=== PATIENT | male | born 2000 | race Caucasian/White ===

== ENCOUNTER 2021-12-31 18:21 | Emergency (ER) | payer MEDICAID, SELFPAY ==
[2021-12-31 18:32] VITALS: BP 108/78; PULSE 88; RESP 17; TEMP 36.4; O2SAT 98
--- NOTE | 2021-12-31 19:45 | DI.CT_ITS ---
Exam(s) CT HEAD WO EXAM: CT HEAD WO CLINICAL HISTORY: head and facial tightness, r/o acute process. TECHNIQUE: Imaging Protocol: Axial computed tomography images with coronal and sagittal reformatted images were created and reviewed COMPARISON: No exams were available for comparison FINDINGS: Ventricles and Extra axial spaces: Normal in size and morphology for the patient's age. Hemorrhage: None. Cerebral parenchyma: Normal. Midline shift: None. Brainstem/Cerebellum: Normal. Calvarium: Normal. Visualized Paranasal sinuses/Mastoids: Mucous retention right maxillary sinus. Soft Tissues: Unremarkable. IMPRESSION: No acute intracranial process. RADIATION DOSE DELIVERED: 1,336.02mGy.cm Total DLP DATA REPOSITORY: All CT scans at this facility are submitted to the National Radiology Data Registry (NRDR) Dose Index Registry (DIR) with the [employer] ([employer]). RADIATION OPTIMIZATION: All CT scans at this facility use at least one of these dose optimization te chniques: automated exposure control; mA and/or kV adjustment per patient size (includes targeted exa ms where dose is matched to clinical indication); or iterative reconstruction.
--- NOTE | 2021-12-31 19:55 | ED.GENADUL_ITS ---
Discharge Plan Disposition Patient Disposition: HOME Condition: Stable Discharge Details Clinical Impression: Tightness sensation Primary Care Provider: Iker Martinez ED Provider: Masoud Telles Home Meds and New Rx's Prescriptions: No Action No Known Home Meds Discharge Instructions Instructions: Temporomandibular Disorder (ED) Additional Instructions: your head cat scan did not show concerning findings and your lab values were unremarkable. this could be TMJ disorder, this can be further evaluated with your primary care provider if you feel more ill, have severe worsening pain or fevers return to the emergency department Medical Decision Making <Rashmi Milan DO - Last Filed: 12/31/21 20:03> 21-year-old male with no significant past medical history presents with a complaint of 4 months of left locke tightness which resolved 3 days ago now with a sensation of tightness extending from the top of the right side of his head and face. Vitals within normal limits. Patient has no focal deficits on exam. Normal sensation on face which is equal and symmetric. There is no evidence of rash or facial droop. Discussed with patient at length that his presentation does not appear consistent with CVA or Little's palsy. History and presentation does not appear consistent with trigeminal neuralgia. Discussed the possibility of tension headache or migraine. Offered to place an IV and check screening labs and CT head and patient is agreeable. We will give a dose of IV Tylenol and fluids. Case endorsed to Dr. Telles to follow-up on labs and imaging and final disposition. <Masoud Telles MD - Last Filed: 12/31/21 21:55> 21-year-old male with no significant past medical history presents with a complaint of 4 months of left locke tightness which resolved 3 days ago now with a sensation of tightness extending from the top of the right side of his head and face. Vitals within normal limits. Patient has no focal deficits on exam. Normal sensation on face which is equal and symmetric. There is no evidence of rash or facial droop. Discussed with patient at length that his presentation does not appear consistent with CVA or Little's palsy. History and presentation does not appear consistent with trigeminal neuralgia. Discussed the possibility of tension headache or migraine. Offered to place an IV and check screening labs and CT head and patient is agreeable. We will give a dose of IV Tylenol and fluids. Case endorsed to Dr. Telles to follow-up on labs and imaging and final disposition. labs and imaging unremarkable. He remains stable and states feels better after oral tylenol. He describes to me a tightness sensation in the right scalp and jaw that comes and goes, no vision changes or speech changes or weakness. Discussed with him that this could be tmj or other non life threatening disorder but should still f/u with his pcp within 1-2 weeks and return precautions given Imaging Data Radiologic Study: Attestation: I personally reviewed and interpreted this imaging study as follows: Imaging: CT Scan Radiologist's impression: no acute findings Lab Data Lab results reviewed: Yes I reviewed the patient's lab results. HPI <Rashmi Milan DO - Last Filed: 12/31/21 20:03> General Mode of arrival: ambulatory . Date/Time Provider Initiated Documentation: 12/31/21 18:36 . Limitations to Documentation: no limitations . Information obtained by: patient . HPI Narrative: Patient is a 21-year-old male presents with a sensation of facial tightness initially starting in his left lower face 4 months ago which has since resolved a few days ago and now has developed a feeling of tightness extending from the top of his head to the right side of his chin 3 days ago. Patient initially thought the sensation was numbness but states he has normal sensation to touch. He states he has a feeling of tightness on the top of his head along the right side of his face to his chin. He denies any tingling sensation or facial weak ness. He denies any blurry vision, slurred speech, extremity weakness or numbness, fever, new exposures, injury or insect bite. Related Data Home Medications Medication Instructions Recorded Confirmed Unknown [No Known Home Meds] 12/31/21 12/31/21 Allergies Allergy/AdvReac Type Severity Reaction Status Date / Time No Known Allergies Allergy Unverified 12/31/21 18:38 General Stated Complaint: FacialProb WHIT: 3 Review of Systems <DO Chandrakant Hassan Last Filed: 12/31/21 20:03> All systems reviewed & are unremarkable except as noted in HPI and below Constitutional Constitutional: Reports as per HPI, Denies chills and Denies fever(s) Eyes Eyes: Denies blurry vision ENT Ears, Nose, Mouth, and Throat: Denies dizziness, Denies sore throat and Denies throat swelling Cardiovascular Cardiovascular: Denies chest pain and Denies dyspnea Respiratory Respiratory: Denies cough and Denies dyspnea Gastrointestinal Gastrointestinal: Denies abdominal pain, Denies diarrhea and Denies vomiting Genitourinary Genitourinary: Denies hematuria and Denies dysuria Musculoskeletal Musculoskeletal: Denies back pain and Denies numbness Integumentary/Breasts Skin/Breast: Denies lesions and Denies rash Neurologic Neurologic: Denies dizziness, Denies localized weakness, Denies numbness and Reports other (head and facial tightness) Allergic/Immunologic Allergic/Immunologic: Denies throat swelling PFSH <Rashmi Milan DO - Last Filed: 12/31/21 20:03> All Active Problems (Updated 12/31/21 @ 20:03 by Rashmi Milan DO) Tightness sensation (Acute) Medical History (Updated 12/31/21 @ 20:03 by Rashmi Milan DO) No significant past medical history Surgical History (Updated 12/31/21 @ 19:57 by Rashmi Milan DO) No significant past surgical history Social History Smoking/Tobacco Use Status: Current every day Tobacco Type: smokeless tobacco Smoking risk assessment performed?: Yes Alcohol Intake: current Alcohol Intake frequency: a few times a month Alcohol type: beer Drug use: Current Sobriety Substance use type: does not use Exam <Rashmi Milan DO - Last Filed: 12/31/21 20:03> Const General: cooperative, healthy appearing and no acute distress Orientation: alert, awake and oriented x3 HENMT Head: normal to inspection Ears: hearing grossly normal bilaterally, external ears normal and TM's normal bilaterally General nose exam: external nose normal Face and sinus: normal facial exam Mouth: oral mucosae normal Throat: posterior oropharynx normal Eyes General: appearance normal, both eyes and all related structures Neck Neck: normal visual inspection Resp Effort & Inspection: normal respiratory effort and able to speak in complete sentences Cardio Rate: regular rate Skin General skin exam: no rashes or lesions noted Neuro General: patient alert, patient awake and patient oriented x3 Cranial Nerves: CN's II-XI intact bilaterally Motor: muscle tone normal throughout and strength 5/5 throughout Extrem General: normal to inspection and full ROM Psych Appearance: grossly normal Affect: normal affect Course <Rashmi Milan DO - Last Filed: 12/31/21 20:03> Vital Signs Vital signs: Vital Signs Temperature 97.5 F L 12/31/21 18:32 Pulse 88 12/31/21 18:32 Respiratory Rate 17 12/31/21 18:32 Blood Pressure 108/78 12/31/21 18:32 Pulse Oximetry 98 12/31/21 18:32 Temperature 97.5 F L 12/31/21 18:32 Temperature Source Temporal Artery Scan 12/31/21 18:32 Pulse 88 12/31/21 18:32 Respiratory Rate 17 12/31/21 18:32 Respiratory Effort Short of Breath 12/31/21 18:35 Blood Pressure 108/78 12/31/21 18:32 Blood Pressure Position Sitting 12/31/21 18:32 Pulse Oximetry 98 12/31/21 18:32 Oxygen Delivery Method Room Air 12/31/21 18:32 Oxygen Flow Rate 0 12/31/21 18:32 Pain Level 4 12/31/21 18:35 Sign Out <Rashmi Milan DO - Last Filed: 12/31/21 20:03> Sign Out Data: Sign Out Comment: Follow-up on labs and imaging and final disposition. Last updated by Rashmi Milan DO at 12/31/21 19:58 PAWSS <Rashmi Milan DO - Last Filed: 12/31/21 20:03> Have you Been Recently Intoxicated or Drunk Within the Last 30 days?: Yes Have you Ever Experienced Previous Episodes of Alcohol Withdrawal?: Yes Have you ever Experienced Withdrawal Seizures?: No Have you ever Experienced Delirium Tremens(DT)s?: Yes Have you ever undergone Alcohol Rehabilitation Treatment (i.e, inpt ot outpatient treatment programs)?: No Have you ever Experienced Blackouts?: Yes Have you ever Combined Alcohol with other Downers within the last 90 days?: No Have you ever Combined Alcohol with any other Substance of Abuse during the last 90 days?: No Result: 4 <Masoud Telles MD - Last Filed: 12/31/21 21:55> Result: 4
[2021-12-31] MEDS: Acetaminophen 500 MG TAB 1000 MG PO (21:09)
--- NOTE | 2021-12-31 21:20 | DI.VRAD_ITS ---
PROCEDURE INFORMATION: Exam: CT Head Without Contrast Exam date and time: 12/31/2021 9:01 PM Age: 21 years old Clinical indication: Stroke-like symptoms; Other: Face numbness/paresthesia TECHNIQUE: Imaging protocol: Computed tomography of the head without contrast. Other technique: STROKE PROTOCOL was implemented. COMPARISON: No relevant prior studies available. FINDINGS: Brain: Normal. No hemorrhage. Unremarkable white matter. No mass effect. Cerebral ventricles: No ventriculomegaly. Paranasal sinuses: Mild fluid in the right maxillary sinus. Mild mucosal thickening in the left maxillary sinus. 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 Mastoid air cells: Visualized mastoid air cells are well aerated. Bones/joints: Unremarkable. No acute fracture. Soft tissues: Unremarkable. IMPRESSION: No acute intracranial abnormality. ASSESSMENT: ASPECTS ([place] Stroke Program Early CT Score) is 10. Dictated and Authenticated by: Abran Damian MD. Ordering:NIVIA Caraballo MD
[2021-12-31 21:23] LABS: Abs Immature Grans 0.03 10^3/uL (0.0-0.06); Absolute Basophil Count 0.08 10^3/uL (0.0-0.2); Absolute Eosinophil Count 0.18 10^3/uL (0.0-0.7); Absolute Monocyte Count 0.79 10^3/uL (0.1-0.8); Absolute Neutrophil Count 6.19 10^3/uL (1.2-6.7); Basophils % 0.8; Eosinophils % 1.8; HCT 46.7 % (40.0-50.0); HGB 16.3 g/dL (13.5-17.5); Immature Grans % 0.3; Lymphocytes % 25.6; MCH 30.3 pg (27.0-33.0); MCHC 34.9 % (32.0-36.0); MCV 87 fL (80-95); Monocytes % 8.1; Neutrophils % 63.4; Platelet Count 350 10^3/uL (130-400); RBC 5.38 10^6/uL (4.36-5.78); RDW 11.7 % (11.8-14.1); WBC 9.77 10^3/uL (4.4-10.8)
[2021-12-31 21:40] LABS: ALT 41 U/L (16-63); AST 29 U/L (15-37); Albumin 4.1 g/dL (3.4-5.0); Alkaline Phosphatase 104 U/L (46-116); Anion Gap 5.2 mmol/L (3-11); BUN 15 mg/dL (7-18); CO2 31.8 mmol/L (21.0-32.0); CREATININE 1.2 mg/dL (0.70-1.30); Calcium 9.3 mg/dL (8.5-10.1); Chloride 100 mmol/L (98-107); Estimated GFR 88.79 (mL/min/1.73m2); Glucose 96 mg/dL (74-106); Potassium 4.1 mmol/L (3.5-5.1); Sodium 137 mmol/L (136-145); Total Protein 7.5 g/dL (6.4-8.2)
== END 2021-12-31 21:58 | disposition home or self-care (01) ==
PROVIDERS: Physician Assistant; Emergency Provider Emergency Medicine; PCP Family Medicine
DX: M79.662 Pain in left lower leg (principal); R51.9 Headache, unspecified; F17.290 Nicotine dependence, other tobacco product, uncomplicated
CPT/HCPCS: 80053; 96365; 99284; 70450; 85025